=== PATIENT | female | born 2000 | race Caucasian/White ===

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

== ENCOUNTER 2020-11-11 14:48 | Emergency (ER) | payer OTHER, SELFPAY ==
[2020-11-11] VITALS (8 sets, daily range): BP systolic 107–145; BP diastolic 63–87; PULSE 64–136; RESP 17–19; TEMP 36.8; O2SAT 99–100
--- NOTE | ~2020-11-11 | XR_ITS ---
EXAMINATION: XR chest 2V DATE: 11/11/2020 15:35 INDICATION: Chest pain. TECHNIQUE: Frontal and lateral views of the chest were obtained. COMPARISON: None. FINDINGS: The chest demonstrates clear lungs without pneumonia, pleural effusion, or pneumothorax. Th e heart size is normal. IMPRESSION: 1. No acute cardiopulmonary disease. Reviewed, dictated and finalized at location A. ME TECHNICIAN
--- NOTE | 2020-11-11 14:49 | ECG_ITS ---
Measurements Intervals [place] Rate: 135 P: 82 CT: 121 QRS: 104 QRSD: 94 T: 6 QT: 333 QTc: 500 Interpretive Statements SINUS TACHYCARDIA RIGHT AXIS DEVIATION MINIMAL Q WAVES- ANTEROLAT/INF LEADS NONSPECIFIC ST & T-WAVE ABNORMALITY- ANTEROLAT/INF LEADS BASELINE WANDER- V1, V3-V6 ABNORMAL ECG Electronically Signed On 11-11-2020 15:01:53 [employer] by Augusto Pardo D.O.
[2020-11-11 15:01] LABS: Basophils Absolute Auto 0.1 K/mm3 (0.0-0.1); Basophils Percent Auto 0.4 % (0.2-1.2); Eosinophils Percent Auto 0.3 % (0-4.4); Hematocrit 40.2 % (37.0-47.0); Hemoglobin 14.1 g/dL (12.0-15.0); Immature Granulocyte Absolute 0.03 K/mm3 (0.00-0.031); Immature Granulocyte Percent A 0.3 % (0-0.5); Lymphocytes Absolute Auto 3.07 K/mm3 (0.9-3.2); Lymphocytes Percent Auto 26.1 % (18.3-44.2); Mean Corpuscular HGB Conc 35.1 g/dl (32-36); Mean Corpuscular Hemoglobin 31.9 pg (26-34); Mean Platelet Volume 9.7 fl (7.4-10.4); Monocytes Absolute Auto 0.8 K/mm3 (0.1-0.6); Monocytes Percent Auto 6.5 % (2.6-8.5); Neutrophils Absolute Auto 7.8 K/mm3 (1.3-6.7); Neutrophils Percent Auto 66.4 % (45.5-73.1); Platelet Count Result 243 k/mm3 (150-375); Red Blood Count 4.42 M/mm3 (4.2-5.4); Red Cell Distribution Width 11.5 % (11.5-14.5); White Blood Count 11.8 K/mm3 (4.5-10.0)
--- NOTE | 2020-11-11 15:01 | ED.CHESTPAIN ---
HPI - Chest Pain General Chief Complaint: Chest Pain Stated Complaint: chest pain Time Seen by Provider: 11/11/20 14:50 Source: patient and family Mode of arrival: ambulatory Limitations: no limitations History of Present Illness HPI narrative: Patient is a 20-year-old female who presents to emergency department for evaluation of feeling jittery and anxious with some chest discomfort that began while at work today patient notes when she woke this morning she felt slightly fatigued and developed chest discomfort and racing after drinking caffeine patient on arrival in no distress currently denying any pain denies similar occurrence in the past URI symptoms or other complaints Related Data Home Medications Medication Instructions Recorded Confirmed No Home Medications 11/11/20 11/11/20 Allergies Allergy/AdvReac Type Severity Reaction Status Date / Time Sulfa (Sulfonamide Allergy Unknown RASH Verified 11/11/20 15:00 Antibiotics) Review of Systems Review of Systems: All systems reviewed & are unremarkable except as noted in HPI and below PMFSH Social History Social History (Updated 11/11/20 @ 15:02 by Myke Longoria PA-C) Smoking status: Never smoker Gender identity (if verbalized by the patient): Female Exam Narrative: Exam Narrative: GENERAL: Well-appearing, well-nourished, and in no acute distress. HEAD: Normocephalic, atraumatic. EYES: PERRLA and EOMI. ENT: Nares clear, no rhinorrhea or epistaxis. Mucous membranes moist. CHEST: Clear to auscultation. No respiratory distress. No wheezes rales or rhonchi HEART: Tachycardic rate and regular rhythm. No murmur heard. Normal peripheral pulses. ABDOMEN: Soft, nontender, nondistended EXTREMITIES: Normal range of motion. No edema. SKIN: Warm, dry, no rash. NEURO: No focal deficits. Alert and oriented x3. PSYCH: Normal mood and affect. Course Course Emergency Course: Patient is a 20-year-old female who presented with chest pain patient was evaluated resting comfortably in the room in no distress had normalization of vital signs ABCs and vital signs intact and stable patient denying any symptoms at this time resting comfortably in no distress. Vital Signs Vital signs: Vital Signs Temperature 98.3 F 11/11/20 14:55 Pulse Rate 136 H 11/11/20 14:55 Respiratory Rate 17 11/11/20 14:55 Blood Pressure 145/87 H 11/11/20 14:55 Pulse Oximetry 100 11/11/20 14:55 Temperature 98.3 F 11/11/20 14:55 Pulse Rate 136 H 11/11/20 14:59 Respiratory Rate 17 11/11/20 14:55 Blood Pressure 145/87 H 11/11/20 14:55 Pulse Oximetry 100 11/11/20 14:55 MDM - Chest Pain MDM Narrative Medical decision making narrative: Patients EKGs and labs are without significant high risk changes. Cardiac risk factors were reviewed. Patient is felt likely to be low risk for ACS and reasonable for further risk stratification testing as an outpatient. Pain was not sudden or maximal in onset without tearing or ripping. quality. No other signs or symptoms to suggest aortic dissection. A low-risk Wells criteria is noted. PE is felt to be unlikely. No pneumonia or URI symptoms were seen on evaluation today. Patient is felt to b reasonable for continued evaluation as an outpatient. Lab Data Result diagrams: 11/11/20 14:55 11/11/20 14:55 Labs: Lab Results 11/11/20 11/11/20 11/11/20 Range/Units 14:55 14:55 14:55 WBC 11.8 H (4.5-10.0) K/mm3 RBC 4.42 (4.2-5.4) M/mm3 Hgb 14.1 (12.0-15.0) g/dL Hct 40.2 (37.0-47.0) % MCV 91.0 (80-100) fl MCH 31.9 (26-34) pg MCHC 35.1 (32-36) g/dl RDW 11.5 (11.5-14.5) % Plt Count 243 (150-375) k/mm3 MPV 9.7 (7.4-10.4) fl Immature Gran % (Auto) 0.3 (0-0.5) % Neut % (Auto) 66.4 (45.5-73.1) % Lymph % (Auto) 26.1 (18.3-44.2) % [place] % (Auto) 6.5 (2.6-8.5) % Eos % (Auto) 0.3 (0-4.4) % Baso % (Auto) 0.4 (0.2-1.2) % Lymph # (Auto)
[2020-11-11] MEDS: SODIUM CHLORIDE 0.9% IV 1,000 ML 999 ML IV CONT (15:08)
[2020-11-11] MEDS: LORazepam INJ (*CRX) 2 MG/ML VIAL 1 MG IV PUSH (15:08)
[2020-11-11 15:12] LABS: Anion Gap 8 mmol/L (8-16); Blood Urea Nitrogen 9 mg/dL (7-17); Calcium 9.3 mg/dL (8.4-10.2); Carbon Dioxide 25 mmol/L (22-30); Chloride 107 mmol/L (98-107); Estimated CRCL calculation 110 ml/min; Estimated Glomerular Filt Rate > 60; Glucose 105 mg/dL (65-105); Potassium 3.3 mmol/L (3.4-5.0); Sodium 140 mmol/L (137-145)
[2020-11-11 15:24] LABS: Amphetamine Screen Urine Negative (Negative); Barbiturate Screen Urine Negative (Negative); Benzodiazepines Screen Urine Negative (Negative); Cannabinoid Screen Urine Negative (Negative); Cocaine Screen Urine Negative (Negative); Methadone Screen Urine Negative (Negative); Opiate Screen Urine Negative (Negative); Phencyclidine Screen Urine Negative (Negative)
[2020-11-11 15:24] LABS: Troponin I < 0.012 ng/mL (0.000-0.034)
[2020-11-11 16:09] LABS: INR 0.9; Prothrombin Time 13.1 Seconds (11.1-14.7)
[2020-11-11 16:11] LABS: Partial Thromboplastin Time 26.8 SECONDS (22.3-36.8)
[2020-11-11 16:17] LABS: D Dimer 0.31 ug/mL (<0.48)
== END 2020-11-11 17:13 | disposition home or self-care (01) ==
PROVIDERS: Emergency Medicine Emergency Medical Services; Emergency Provider Emergency Medicine
DX: R07.89 Other chest pain (principal); R00.0 Tachycardia, unspecified; R94.31 Abnormal electrocardiogram [ECG] [EKG]
CPT/HCPCS: 36415; 71046; 80048; 80307; 81025; 84484; 85025; 85380; 85610; 85730; 93005; 96361; 96374; 99284; J2060; J7030

== ENCOUNTER 2022-08-19 10:08 | Emergency (ER) | payer OTHER, SELFPAY ==
--- NOTE | 2022-08-19 10:23 | ED.URI ---
HPI - URI/Sore Throat General Chief Complaint: Upper Respiratory Infection Stated Complaint: sore throat congestion Time Seen by Provider: 08/19/22 10:16 Source: patient and RN notes reviewed History of Present Illness HPI Narrative: patient is a 22-year-old female who presents to the Urgent Care with complaints of sore throat, head congestion, postnasal drainage and headache. Patient states it started yesterday and she has been taking ibuprofen. Patient denies any known fevers, nausea or vomiting. 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 No other acute complaints. No acute distress noted. Patient is aware of the plan of care. Some parts of this dictation were generated by voice recognition software and may contain typographical and/or grammatical inaccuracies. Related Data Home Medications Medication Instructions Recorded Confirmed No Home Medications 11/11/20 11/11/20 Allergies Allergy/AdvReac Type Severity Reaction Status Date / Time Sulfa (Sulfonamide Allergy Unknown RASH Verified 05/22/22 15:55 Antibiotics) Review of Systems Review of Systems: CONSTITUTIONAL: Denies fever, chills, or sweats. EYES: Denies visual changes, redness, or discharge. ENT: reports a sore throat, head congestion and postnasal drainage CARDIOVASCULAR: Denies chest pain, palpitations, or edema. RESPIRATORY: Denies cough or dyspnea. GASTROINTESTINAL: Denies abdominal pain, nausea, vomiting, or diarrhea. GENITOURINARY: Denies dysuria or hematuria. SKIN: Denies rash or itching. MUSCULOSKELETAL: Denies back pain, joint pain . Reports body aches NEUROLOGIC: reports of headache All other systems reviewed are negative, except as documented in HPI. PMFSH Social History Social History (System 05/22/22 @ 15:55 by Declan Rodriguez) Smoking status: Never smoker Gender identity (if verbalized by the patient): Female Comments At the time of my signature, I reviewed and agree with the nursing past medical, surgical, social, and family history. There is no relevant family history pertinent to the patient complaint. Exam Narrative: GENERAL: This is a well-nourished, well-developed patient, in no apparent distress. HEAD: normocephalic, atraumatic. EYES: PERRL. Sclera clear/white. Vision is grossly intact. EARS: External ears normal, auditory canals clear and without drainage, TMs normal without perforation. Hearing grossly intact. NOSE: External nose normal with no obvious nasal discharge . Mild bilateral erythema nares with clear rhinorrhea THROAT: Mucous membranes moist, mild erythema noted posterior pharynx with mild postnasal drainage. NECK: Neck supple, non-tender without lymphadenopathy, masses or thyromegaly. CARDIOVASCULAR: Regular rate and rhythm without murmurs, gallops, or rubs. RESPIRATORY: Clear to auscultation. Breath sounds equal bilaterally. No wheezes, rales, or rhonchi. SKIN: warm, intact with no suspicious lesions or rash, good texture and turgor. NEURO: awake, alert, and oriented to person, place and time. There were no obvious focal neurologic abnormalities. EXTREMITIES: No clubbing, cyanosis, or edema. Course Course Level of Care: Express Care Visit Vital Signs Vital signs: Vital Signs Temperature 99.7 F H 08/19/22 10:28 Pulse Rate 103 H 08/19/22 10:28 Respiratory Rate 16 08/19/22 10:28 Blood Pressure 111/50 L 08/19/22 10:28 Pulse Oximetry 100 08/19/22 10:28 Oxygen Delivery Room Air 08/19/22 10:28 Temperature 99.7 F H 08/19/22 10:28 Pulse Rate 103 H 08/19/22 10:28 Respiratory Rate 16 08/19/22 10:28 Blood Pressure 111/50 L 08/19/22 10:28 Pulse Oximetry 100 08/19/22 10:28 Oxygen Delivery Room Air 08/19/22 10:28 reviewed MDM - URI/Sore Throat MDM Narrative Medical decision making narrative: reviewed lab results with the patient. Flu swab was negative.She is aware that strep swab was negative. Educated patient
[2022-08-19 10:28] VITALS: BP 111/50; PULSE 103; RESP 16; TEMP 37.6; O2SAT 100
== END 2022-08-19 11:10 | disposition home or self-care (01) ==
PROVIDERS: Emergency Provider Nurse Practitioner Family; PCP Nurse Practitioner Family
DX: B34.9 Viral infection, unspecified (principal)
CPT/HCPCS: 87081; 87804; 87880; 99213; G0463